=== PATIENT | female | born 1980 | race Caucasian/White ===

== ENCOUNTER 2019-08-29 11:14 | Outpatient (CLI) | payer SELFPAY ==
--- NOTE | 2019-08-29 11:00 | MM_ITS ---
WS: [id number] BILATERAL DIGITAL DIAGNOSTIC MAMMOGRAM MAMMOGRAPHY WITH CAD CLINICAL INFORMATION: pain and swelling COMPARISON: None. TECHNIQUE: Bilateral CC, MLO, and ML views. FINDINGS: Fatty replaced breasts bilaterally. No suspicious mammographic abnormalities. Ultrasound of the area of concern along the right lateral chest wall is pending ULTRASOUND BREAST RIGHT TECHNIQUE: Ultrasound right breast focused area of concern along the right lateral intercostal chest wall. CLINICAL INFORMATION: pain and swelling COMPARISON: None. FINDINGS: Ultrasound right axilla and right lateral chest wall in the area of concern. Several enlarged lymph n odes in the area of concern along the right lateral intercostal chest wall. Axillary lymph nodes are normal in appearance. Preserved fatty hilum. Largest lymph nodes along the right intercostal area in the area of pain measures approximately 2.5 x 1.1 cm with preserved fatty hilum. THESE ARE PROBABLY BENIGN AND MAY BE INFECTIOUS OR INFLAMMATORY IN THE ABSENCE OF HISTORY OF MALIGNAN CY. THESE COULD BE FOLLOWED UP WITH ULTRASOUND IN 4-6 WEEKS. MM/[place] [id number] IMPRESSION: BI-RADS: 3-Probably Benign FOLLOW UP: See Report
== END 2019-08-29 11:15 | disposition home or self-care (01) ==
LOC: RADSHAW 11:14
PROVIDERS: PCP Nurse Practitioner; Visit Provider Nurse Practitioner
DX: N64.4 Mastodynia (principal); R59.0 Localized enlarged lymph nodes
CPT/HCPCS: 77066

== ENCOUNTER 2019-08-30 08:42 | Outpatient (CLI) | payer SELFPAY ==
--- NOTE | 2019-08-30 | US_ITS ---
NOTE: Report was unsigned for reason: Order was edited. Original Signature date and time was: 08/30/19 at 1122 WS: [id number] BILATERAL DIGITAL DIAGNOSTIC MAMMOGRAM MAMMOGRAPHY WITH CAD CLINICAL INFORMATION: pain and swelling COMPARISON: None. TECHNIQUE: Bilateral CC, MLO, and ML views. FINDINGS: Fatty replaced breasts bilaterally. No suspicious mammographic abnormalities. Ultrasound of the area of concern along the right lateral chest wall is pending ULTRASOUND BREAST RIGHT TECHNIQUE: Ultrasound right breast focused area of concern along the right lateral intercostal chest wall. CLINICAL INFORMATION: pain and swelling COMPARISON: None. FINDINGS: Ultrasound right axilla and right lateral chest wall in the area of concern. Several enlarged lymph nodes in the area of concern along the right lateral intercostal chest wall. Axillary lymph nodes are normal in appearance. Preserved fatty hilum. Largest lymph nodes along the right intercostal area in the area of pain measures approximately 2.5 x 1.1 cm with preserved fatty hilum. THESE ARE PROBABLY BENIGN AND MAY BE INFECTIOUS OR INFLAMMATORY IN THE ABSENCE OF HISTORY OF MALIGNANCY. THESE COULD BE FOLLOWED UP WITH ULTRASOUND IN 4-6 WEEKS. MM/[place] [id number] IMPRESSION: BI-RADS: 3-Probably Benign FOLLOW UP: See Report MTDD
== END 2019-08-30 08:43 | disposition home or self-care (01) ==
LOC: RAD 08:42
PROVIDERS: PCP Nurse Practitioner; Visit Provider Nurse Practitioner
DX: N63.0 Unspecified lump in unspecified breast (principal); R92.8 Other abnormal and inconclusive findings on diagnostic imaging of breast; N64.4 Mastodynia
CPT/HCPCS: 76642

== ENCOUNTER 2019-09-12 08:21 | Outpatient (CLI) | payer SELFPAY ==
--- NOTE | 2019-09-12 08:00 | CT_ITS ---
WS: [id number] CT CHEST WITH INTRAVENOUS CONTRAST HISTORY: enlarged lymph nodes TECHNIQUE: Contiguous 5 mm axial imaging performed on the thorax. Coronal and sagittal reformats are submitted. All CT scans at [facility] use at least one of these dose optimization techniq ues: automated exposure control; mA and/or kV adjustment per patient size (includes targeted exams wh ere dose is matched to clinical indication); or iterative reconstruction. CONTRAST: Omnipaque 300; 95 mL IV. DLP: 992.9 mGycm COMPARISON: Breast ultrasound 08/30/2019. Lungs and central airway: Subsegmental bandlike atelectasis RIGHT lower lobe. This was also present o n the prior CT of 02/23/2012. No new pulmonary nodule or mass. Pleura: Normal. No pleural effusion. Heart and pericardium: Normal size heart. No pericardial effusion. Mediastinum and frances: Stable anterior mediastinal mass is probably residual thymic tissue. No change since 12/22/2014. Vessels: Normal size aortic and pulmonary artery. No coronary artery calcifications. Chest wall and lower neck: No significant adenopathy is identified. Benign-appearing lymph nodes with in the RIGHT axilla and over the anterior chest. Similar lymph nodes in the LEFT axilla. Normal fatty frances. Upper abdomen: Negative. Osseous structures: No destructive process. CT/CT chest w con* [id number] IMPRESSION: 1. No suspicious mediastinal or axillary adenopathy. Benign lymph nodes in the axilla with normal fatty frances. 2. Chronic bandlike area of atelectasis RIGHT lower lobe.
[2019-09-12] MEDS: iohexol 300 mg/mL 100 mL Btl IV (09:16)
== END 2019-09-12 08:22 | disposition home or self-care (01) ==
LOC: RADWPI 08:27
PROVIDERS: PCP Nurse Practitioner; Visit Provider Nurse Practitioner Family
DX: R59.9 Enlarged lymph nodes, unspecified (principal); J98.11 Atelectasis
CPT/HCPCS: 71260; Q9967

== ENCOUNTER → 2020-01-02 14:09 | Outpatient (BNVA) | payer SELFPAY | PROVIDERS: PCP Nurse Practitioner; Visit Provider Nurse Practitioner Family | DX: S52.572A Other intraarticular fracture of lower end of left radius, initial encounter for closed fracture (principal); X58.XXXA Exposure to other specified factors, initial encounter | CPT/HCPCS: 73090; 73110 ==

== ENCOUNTER 2020-01-05 12:27 | Emergency (ER) | payer SELFPAY ==
[2020-01-05 13:24] VITALS: BP 120/59; PULSE 76; RESP 20; TEMP 36.9; O2SAT 98; BMI 33.0
[2020-01-05 13:29] VITALS: BP 129/70; PULSE 78; RESP 18; O2SAT 97
--- NOTE | 2020-01-05 14:02 | XRR_ITS ---
PROCEDURE INFORMATION: Exam: XR Left Wrist Exam date and time: 01/05/2020 2:03 PM Age: 39 years old Clinical indication: Injury or trauma; Fall; Initial encounter; Blunt trauma (contusions or hematomas; Wrist; Left; Additional info: Left wrist fracture TECHNIQUE: Imaging protocol: XR Left wrist. Views: 3 or more views. COMPARISON: CR XR wrist LT min 3V* [id number] 01/02/2020 2:30 PM FINDINGS: Bones/joints: There is a minimally displaced fracture of the distal left radius which is unchanged. No new fractures. Soft tissues: Normal. XR/XR wrist LT min 3V* [id number] IMPRESSION: Fracture of the distal left radius is unchanged in alignment.
[2020-01-05] MEDS: HYDROcodone-acetaminophen 7.5-325 mg Tablet 1 TAB PO (14:22)
--- NOTE | 2020-01-05 14:24 | W.ED.EXTPRO ---
HPI - Extremity Problem General: Chief complaint: Extremity Injury, Upper Stated complaint: wrist pain Time Seen by Provider: 01/05/20 13:15 History of Present Illness: HPI Narrative: 39-year-old female patient presents to the emergency department with complaints of increased left wrist pain. 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 Diagnosed with left radial/wrist fracture, placed in a Velcro wrist splint, has continued to experience pain and swelling. She denies trauma or further injury with exception of trying to complete ADLs the best of her ability despite fracture of the left arm. She reports has upcoming appointment with Dr. Limon, orthopedic surgery next week. Right hand dominant. MD Complaint: extremity pain (Left forearm and wrist), extremity swelling (Left wrist) and joint pain (Left wrist) Pain Consistency: constant Location: left Severity scale (1-10): 8 Quality: aching and dull Radiation: distal Relieving factors: medication (hydrocodone) Exacerbating factors: range of motion Associated symptoms: Reports no associated symptoms; Deny chest pain, fever(s) or rash Review of Systems General: Reports: 10 or more systems reviewed and unremarkable except in HPI and below Const: Denies: fever(s), chills or diaphoresis Eyes: Denies: blurry vision or eye redness ENMT: Denies: throat pain, dental pain or disequilibrium Card: Denies: chest pain, palpitations or irregular heart rhythm Resp: Denies: dyspnea, productive cough, non-productive cough or wheezing GI: Denies: abdominal pain, nausea or vomiting : Denies: difficulty voiding or dysuria Musc: Reports: extremity pain (Left wrist) and extremity swelling (Left wrist); Denies: back pain Skin/Breast: Denies: rash or pruritus Neuro: Denies: headache(s), weakness in extremities or behavioral changes Gordon/Lymph: Denies: easy bruising PFSH ED PFSH: Medical History (Updated 01/05/20 @ 15:12 by LUCHO Ortiz) Closed fracture of left forearm Osteoarthritis PTSD (post-traumatic stress disorder) Recent surgical procedure on lower extremity Surgical History History of hysterectomy Family History Grandmother Cancer Grandfather Cancer Mother Cancer Social History Smoking and tobacco status: current every day smoker cigarettes Packs smoked per day: 0.5 Years cigarettes smoked: 26 Quit status (tobacco): considering quitting Alcohol intake: current Alcohol intake frequency: holidays/special occasions only Desire information about substance/drug rehabilitation?: No Counseling given: No Lives independently: Yes Household members: children Marital status: Current occupational status: student History of recent travel: No Current gender identity: Female Physical Exam Const: COMMON NORMALS: no acute distress, patient oriented x3, healthy appearing and alert GENERAL APPEARANCE: cooperative and well hydrated Eye: COMMON NORMALS: Equal, round and reactive pupils present and EOMs intact bilaterally GENERAL EYE: appearance normal, both eyes and all related structures PUPIL: Yes Equal, round and reactive pupils present Neck/C-Spine: COMMON NORMALS: full ROM and no lymphadenopathy GENERAL: Yes normal visual inspection and Yes trachea midline CERVICAL SPINE: Yes cervical ROM normal Lymph: LYMPHATIC: no lymphadenopathy noted Chest: COMMONS NORMALS: normal inspection of the chest Resp: COMMON NORMALS: normal respiratory effort and clear to auscultation bilaterally AUSCULTATION: clear to auscultation bilaterally Cardio: COMMON NORMALS: regular rhythm, S1 normal heart sound present and S2 normal heart sound present RHYTHM: regular rhythm HEART SOUNDS: S1 normal heart sound present and S2 normal heart sound present GI: COMMON NORMALS: Soft to palpation and non-tender INSPECTION: Yes normal to inspection PALPATION: Yes Soft to palpation : COMMON NORMALS: Yes no CVA tenderness BLADDER/KIDNEY EXAM: Yes no CVA tenderness Back/Pelvis: COMMON NORMALS: no CVA tenderness and thoracic and lumbar spine normal to inspection Extremity: COMMON NORMALS: normal to inspection and capillary refill normal LEFT UPPER EXTREMITY: Yes elbow joint (WITHOUT tenderness upon palpation), Yes lower arm (echymosis dorsally - mid FA), Yes wrist (slight swelling, dorsal ecchymosis, pain to the radial styloid) and Yes hand & digits (cap refill immediate, ecchymosis dorsally - not able to reproduce pain) Left hand and digits: Yes ROM (flexion and extension to all digits noted, n/v exam WITHOUT deficits) and Yes neurovascular exam Neuro: COMMON NORMALS: patient oriented x3 and no focal motor deficits SENSORIUM/ORIENTATION: Yes alert Psych: COMMON NORMALS: mental status grossly normal, Normal thought process present and cooperative ACTIVITY/MOTOR BEHAVIOR: Yes appropriate eye contact THOUGHT PROCESS: Normal thought process present Skin: COMMON NORMALS: no rashes or lesions noted and turgor normal GENERAL SKIN EXAM: no rashes or lesions noted and turgor normal Course Vital Signs: Vital signs: Vital Signs Temperature 98.5 F 01/05/20 13:24 Pulse Rate 78 01/05/20 13:29 Respiratory Rate 18 01/05/20 13:29 Blood Pressure 129/70 01/05/20 13:29 Pulse Oximetry 97 01/05/20 13:29 MDM - Extremity (Nontraumatic) Imaging Data^: Other Xray: Attestation: I personally reviewed and interpreted this imaging study as follows: My impression: Continued left distal radius fracture - no change from previous left wrist series 01/02/2020 Discharge Plan Discharge Patient Disposition: Home Clinical Impression: Distal radial fracture Qualifiers: Encounter type: initial encounter Fracture type: closed Fracture morphology: other intra-articular Laterality: left Qualified Code(s): S52.572A - Other intraarticular fracture of lower end of left radius, initial encounter for closed fracture Condition: Stable Prescriptions: No Action hydrocodone-acetaminophen 5-325 mg tablet 1 tab PO Q6H PRN (Reason: pain) 5 Days Qty: 20 RF: 0 Discharge Orders: Discharge Order (Routine); Ordered 01/05/20 Ordered By: Paz Liao Referrals: Tegan Rizzo FNP [Primary Care Provider] - Discharge Diet: Usual diet Discharge Activity: Limit activity as instructed Patient Instructions: Fractures - Forearm, Splint Care (ED) Activity Restrictions/Additional Instructions: Limit use of the left upper extremity, you may remove the sling to complete small range of motion exercises of the left shoulder, keep the left splint on the left arm to stabilize the fracture You may loosen the Fernando wrap if the splint becomes too tight Return to the emergency department if you experience discoloration of the fingers, worsening pain, or new concerning symptoms. Continue follow-up with Dr. Limon next week Discharge Date/Time: 01/05/20 15:45 Coding Level of Care Code ED Maintenance Shop Laborer for Chg Fwd Exam Comprehensive
--- NOTE | 2020-01-05 15:41 | PC.NURSE ---
UPON DC PT CAP REFILL IS LESS THAN 3 SECONDS PT DENIES ANY WORSENING IN SENSATION OR LOSS OF FUNCTION. PT REEDUCATED UPON WHEN TO LOOSEN SPLINT PT VERBALIZED UNDERSTANDING UPON DC PT IS IN NAD.
== END 2020-01-05 15:45 | disposition home or self-care (01) ==
PROVIDERS: Emergency Provider Nurse Practitioner Family; PCP Nurse Practitioner
DX: S52.572A Other intraarticular fracture of lower end of left radius, initial encounter for closed fracture (principal); F17.210 Nicotine dependence, cigarettes, uncomplicated; X58.XXXA Exposure to other specified factors, initial encounter
CPT/HCPCS: 12345; 29125; 73110; 99281; 99283

== ENCOUNTER 2020-01-08 09:00 | Outpatient (CLI) | payer SELFPAY | END 2020-01-08 09:01 | LOC: SOT 04-10 12:08 | PROVIDERS: PCP Nurse Practitioner; Referring Provider Specialist; Visit Provider Specialist | DX: Z46.89 Encounter for fitting and adjustment of other specified devices (principal); S52.572D Other intraarticular fracture of lower end of left radius, subsequent encounter for closed fracture with routine healing; X58.XXXD Exposure to other specified factors, subsequent encounter | CPT/HCPCS: L3984 ==

== ENCOUNTER → 2020-01-14 13:37 | Outpatient (BNVA) | payer SELFPAY | PROVIDERS: PCP Nurse Practitioner; Visit Provider Specialist | DX: S52.572A Other intraarticular fracture of lower end of left radius, initial encounter for closed fracture (principal); X58.XXXA Exposure to other specified factors, initial encounter | CPT/HCPCS: 73110 ==

== ENCOUNTER → 2020-02-06 13:06 | Outpatient (BNVA) | payer SELFPAY | PROVIDERS: PCP Nurse Practitioner; Visit Provider Specialist | DX: S52.502A Unspecified fracture of the lower end of left radius, initial encounter for closed fracture (principal); S52.572A Other intraarticular fracture of lower end of left radius, initial encounter for closed fracture | CPT/HCPCS: 73110 ==

== ENCOUNTER → 2023-04-11 15:42 | Outpatient (BNVA) | payer MEDICAID, SELFPAY | PROVIDERS: PCP Nurse Practitioner; Visit Provider Nurse Practitioner Family | DX: R50.9 Fever, unspecified (principal); J06.9 Acute upper respiratory infection, unspecified | CPT/HCPCS: 87400; 87426 ==

== ENCOUNTER → 2024-11-29 11:42 | Outpatient (BNVA) | payer BC, SELFPAY | PROVIDERS: PCP Nurse Practitioner Family; Visit Provider Nurse Practitioner Family | DX: R92.8 Other abnormal and inconclusive findings on diagnostic imaging of breast (principal); N60.11 Diffuse cystic mastopathy of right breast; N60.12 Diffuse cystic mastopathy of left breast; Z79.899 Other long term (current) drug therapy; Z13.6 Encounter for screening for cardiovascular disorders; E55.9 Vitamin D deficiency, unspecified; E16.2 Hypoglycemia, unspecified; R73.9 Hyperglycemia, unspecified | CPT/HCPCS: 80053; 80061; 81003; 82306; 83036; 84443; 85025; 87086 ==

== ENCOUNTER 2024-12-20 08:09 | Outpatient (CLI) | payer BC, SELFPAY ==
--- NOTE | 2024-12-20 08:30 | MM_ITS ---
WS: [id number] BILATERAL 3D TOMOSYNTHESIS DIGITAL DIAGNOSTIC MAMMOGRAPHY WITH CAD CLINICAL INFORMATION: R92.8 - Other abnormal and inconclusive findings on diagn... HISTORY: RIGHT breast lumps. LEFT breast pain. COMPARISON: 2020 TECHNIQUE: Bilateral CC, MLO, and ML views. FINDINGS: Scattered fibroglandular densities bilaterally. No suspicious mammographic abnormalities in the areas of concern. Ultrasound of these areas described below ULTRASOUND BREAST BILATERAL TECHNIQUE: Ultrasound bilateral breast focused area of concern. CLINICAL INFORMATION: R92.8 - Other abnormal and inconclusive findings on diagn... FINDINGS: RIGHT BREAST: No suspicious abnormalities in the areas of concern patient directed. Normal underlying parenchymal tissue. RIGHT breast 9:00 12 cm from the nipple was scanned LEFT BREAST: No suspicious abnormalities in the areas of concern patient directed. Normal underlying parenchymal tissue. LEFT breast 12 o'clock position patient directed. MM/MM diag tomosynthesis [id number] IMPRESSION: DENSITY: There are scattered areas of fibroglandular density. BI-RADS: 1 - Negative. FOLLOW UP: 1 Year Follow-up Recommend return to annual screening mammography.
--- NOTE | 2024-12-20 09:00 | US_ITS ---
WS: [id number] BILATERAL 3D TOMOSYNTHESIS DIGITAL DIAGNOSTIC MAMMOGRAPHY WITH CAD CLINICAL INFORMATION: R92.8 - Other abnormal and inconclusive findings on diagn... HISTORY: RIGHT breast lumps. LEFT breast pain. COMPARISON: 2020 TECHNIQUE: Bilateral CC, MLO, and ML views. FINDINGS: Scattered fibroglandular densities bilaterally. No suspicious mammographic abnormalities in the areas of concern. Ultrasound of these areas described below ULTRASOUND BREAST BILATERAL TECHNIQUE: Ultrasound bilateral breast focused area of concern. CLINICAL INFORMATION: R92.8 - Other abnormal and inconclusive findings on diagn... FINDINGS: RIGHT BREAST: No suspicious abnormalities in the areas of concern patient directed. Normal underlying parenchymal tissue. RIGHT breast 9:00 12 cm from the nipple was scanned LEFT BREAST: No suspicious abnormalities in the areas of concern patient directed. Normal underlying parenchymal tissue. LEFT breast 12 o'clock position patient directed. US/US breast BI limited* [id number] IMPRESSION: DENSITY: There are scattered areas of fibroglandular density. BI-RADS: 1 - Negative. FOLLOW UP: 1 Year Follow-up Recommend return to annual screening mammography.
== END 2024-12-20 08:10 | disposition home or self-care (01) ==
LOC: RAD 08:10
PROVIDERS: PCP Nurse Practitioner Family; Visit Provider Nurse Practitioner Family
DX: R92.8 Other abnormal and inconclusive findings on diagnostic imaging of breast (principal); N60.11 Diffuse cystic mastopathy of right breast; N60.12 Diffuse cystic mastopathy of left breast; R92.323 Mammographic fibroglandular density, bilateral breasts
CPT/HCPCS: 76642; 77062; G0279

== ENCOUNTER → 2025-04-10 11:42 | Outpatient (BNVA) | payer BC, SELFPAY | PROVIDERS: PCP Nurse Practitioner Family; Visit Provider Nurse Practitioner Family | DX: E55.9 Vitamin D deficiency, unspecified (principal); Z79.899 Other long term (current) drug therapy; R92.8 Other abnormal and inconclusive findings on diagnostic imaging of breast; Z80.3 Family history of malignant neoplasm of breast; N39.0 Urinary tract infection, site not specified; R73.03 Prediabetes | CPT/HCPCS: 80053; 80061; 81003; 81162; 82306; 83036; 85025; 87086 ==